=== PATIENT | male | born 1955 | race Caucasian/White ===

== ENCOUNTER 2023-04-30 17:26 | Emergency (ER) | payer MEDICARE, SELFPAY ==
[~2023-04-30] VITALS: Ht 172.7 cm; Wt 70.5 kg
[2023-04-30] MEDS ORDERED: SODIUM CHLORIDE 0.9% 1,000 ML IV ONE ×2 (17:45)
[2023-04-30] MEDS ORDERED: PROPARACAINE HCL 0.5% 15 ML OPHTHALMIC SOLUTION OU ONE (17:45)
[2023-04-30] MEDS ORDERED: FLUORESCEIN SODIUM 1 MG STRIP OU ONE (19:15)
[2023-04-30] MEDS ORDERED: ERYT3.5O8 OU (19:41)
[2023-04-30 20:05] VITALS: BP 135/69; PULSE 73; RESP 16; TEMP 97.3
== END 2023-04-30 20:18 | disposition home or self-care (01) ==
LOC: EMS 17:29
DX: S05.02XA Injury of conjunctiva and corneal abrasion without foreign body, left eye, initial encounter (principal); S05.01XA Injury of conjunctiva and corneal abrasion without foreign body, right eye, initial encounter; X58.XXXA Exposure to other specified factors, initial encounter; Y93.89 Activity, other specified; Y92.89 Other specified places as the place of occurrence of the external cause; Y99.8 Other external cause status
CPT/HCPCS: 99283; 96360; J7030

== ENCOUNTER 2024-04-18 16:03 | Emergency (ER) | payer MEDICARE ==
[~2024-04-18] VITALS: Ht 170.2 cm; Wt 79.0 kg
[2024-04-18 16:09] VITALS: TEMP 98.4
[2024-04-18] MEDS ORDERED: METF-1211 PO (16:10)
[2024-04-18] MEDS ORDERED: htn med PO (16:10)
[2024-04-18 16:40] VITALS: BP 122/60; PULSE 62; RESP 16; O2SAT 100
== END 2024-04-18 17:04 | disposition home or self-care (01) ==
LOC: EMS 16:03
DX: M79.675 Pain in left toe(s) (principal); E11.9 Type 2 diabetes mellitus without complications; Z98.890 Other specified postprocedural states
CPT/HCPCS: 82962; 99282